=== PATIENT | male | born 1960 | race Caucasian/White ===

== ENCOUNTER 2017-04-09 10:29 | Emergency (ER) | payer MEDICARE, OTHER ==
[~2017-04-09] VITALS: Ht 185.4 cm; Wt 77.3 kg
[2017-04-09 10:44] VITALS: BP 93/62; PULSE 67; RESP 17; TEMP 98; O2SAT 98
[2017-04-09 11:16] VITALS: BP 100/72; PULSE 60; RESP 20; TEMP 97.8; O2SAT 98
[2017-04-09 11:19] VITALS: BP 100/72; PULSE 60; TEMP 97.8; O2SAT 98
[2017-04-09] MEDS ORDERED: ALBUAER3 INH (11:55)
[2017-04-09] MEDS ORDERED: GABA100C4 PO (11:55)
[2017-04-09] MEDS ORDERED: PREG25 PO (11:55)
[2017-04-09] MEDS ORDERED: BACL10TA PO (11:55)
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
--- NOTE | 2017-04-09 12:38 | RADRPT ---
EXAM DATE/TIME: 04/09/2017 12:03 [facility] COMPARISON: No previous studies available for comparison. INDICATIONS : Fell down the stairs today. MEDICAL HISTORY : None. SURGICAL HISTORY : None. ENCOUNTER: Initial ACUITY: 1 day PAIN SCORE: 6/10 LOCATION: Right anterior shoulder FINDINGS: Multiple view examination of the right shoulder demonstrates no evidence of fracture or dislocation. The glenohumeral and acromioclavicular joints are maintained. There is normal range of motion betwe en internal and external rotation. Bony mineralization is normal. CONCLUSION: No acute fracture. Fritz Martinez MD on April 09, 2017 at 12:36 Board Certified Radiologist. This report was verified electronically.
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
== END 2017-04-09 14:12 | disposition home or self-care (01) ==
LOC: PHED 10:29 → PHEFT 14:12
DX: S40.011A Contusion of right shoulder, initial encounter (principal); S16.1XXA Strain of muscle, fascia and tendon at neck level, initial encounter; W10.9XXA Fall (on) (from) unspecified stairs and steps, initial encounter; Y93.01 Activity, walking, marching and hiking; Y92.009 Unspecified place in unspecified non-institutional (private) residence as the place of occurrence of the external cause
CPT/HCPCS: 72125; 73030; 99284

== ENCOUNTER → 2017-04-19 | Outpatient (CLI) | payer MEDICARE ==
[~2017-04-19] MED LIST: ALBUAER3 INH; BACL10TA PO; GABA100C4 PO; PREG25 PO
[2017-04-19 13:10] LABS: BACTERIA, URINE RARE /hpf; BLOOD, URINE NEG (NEG); GLUCOSE,URINE NEG (NEG); HYALINE CAST, URINE 1 /lpf (RARE); KETONE, URINE NEG (NEG); MUCUS URINE FEW /lpf (OCC); NITRITE,URINE NEG (NEG); SQUAMOUS EPITHELIAL CELL URINE <1 /hpf (0-5); URINE COLOR YELLOW (YELLW/STRAW)
== END ==
LOC: PLAB 11:18
PROVIDERS: ATTEND Family Medicine
DX: R35.0 Frequency of micturition (principal); N39.41 Urge incontinence
CPT/HCPCS: 81001; 87086

== ENCOUNTER → 2017-09-26 | Day surgery (SDC) | payer OTHER ==
[~2017-09-26] VITALS: Ht 185.4 cm; Wt 75.2 kg
[~2017-09-26] MED LIST changes: +CEPH-459 PO; +CHLORHEXIDINE GLUCONATE 2 % 1 PACK (2 CLOTHS) TOPICAL PRN; +DEXAMETHASONE SOD PHOS 4 MG/ML VIAL IV ONE; +DO NOT ADM ANY ANTICOAGULANT DRUGS PRN; +ESMOLOL HCL 100 MG/10 ML VIAL IV ONE; +GLYCOPYRROLATE 1 MG/5 ML SYRINGE IV PUSH ONE; +INSULIN HUMAN REGULAR 1,000 UNITS/10 ML VIAL SQ PRN; +LACTATED RINGER'S 1000 ML IV PRN; +LIDOCAINE HCL 1% PF 5 ML SYRINGE OTHER ONE; +METOPROLOL TARTRATE 25 MG TAB PO PRN; +ONABOTULINUMTOXINA INJ 100 UNITS/VIAL SCH; +ONDANSETRON HCL 4 MG/2 ML VIAL IV ONE; +ONDANSETRON HCL 4 MG/2 ML VIAL IV PUSH PRN; +PERC5TAB12 PO; +PHENYLEPH/NS 1000 MCG/10 ML SYR IV ONE; +POVIDONE IODINE 5% (ANTISEPSIS KIT) 4 APPLICATIONS EACH NARE PRN; +PROPOFOL 200 MG/20 ML AMP IV ONE; +SODIUM CHLORID 0.9% 500 ML IV PRN; +SODIUM CHLORIDE 0.9% 20 ML VIAL ONE; +ceFAZolin 1,000 MG/NS 100 ML IV SCH; +ePHEDrine/NS 25 MG/5 ML SYRINGE IV ONE; +oxyCODONE/ACETAMINOPHEN 5 MG/325 MG TAB PO PRN
[2017-09-26 09:31] LABS: AUTOMATED NEUTROPHIL # 3.2 TH/MM3 (1.8-7.7); BASOPHIL # 0.1 TH/MM3 (0-0.2); BASOPHIL % 2.4 % (0.0-2.0); EOSINOPHIL # 0.2 TH/MM3 (0-0.4); EOSINOPHIL % 3.3 % (0.0-4.0); HEMOGLOBIN 13.9 GM/DL (13.0-17.0); LYMPH % 30.9 % (9.0-44.0); LYMPHOCYTE # 1.9 TH/MM3 (1.0-4.8); MEAN CELL VOLUME 82.8 FL (80.0-100.0); MEAN CORPUSCULAR HEMOGLOBIN 28.1 PG (27.0-34.0); MEAN CORPUSCULAR HGB CONC 33.9 % (32.0-36.0); MEAN PLATELET VOLUME 7.1 FL (7.0-11.0); MONO % 10.9 % (0.0-8.0); MONOCYTE # 0.7 TH/MM3 (0-0.9); NEUT % 52.5 % (16.0-70.0); PLATELET COUNT 431 TH/MM3 (150-450); RED BLOOD COUNT 4.96 MIL/MM3 (4.50-5.90); RED CELL DISTRIBUTION WIDTH 13.6 % (11.6-17.2)
[2017-09-26] MEDS: ONABOTULINUMTOXINA INJ 100 UNITS/VIAL SCH ×2 (11:29→11:36)
--- NOTE | 2017-09-26 12:42 | PD.OP ---
Operative Report Date of Surgery: Sep 26, 2017 Preoperative Diagnosis: (1) Neurogenic bladder Postoperative Diagnosis: (1) Neurogenic bladder Procedure: Cystoscopy and intravesical Botox injection therapy Anesthesia: General Surgeon: Sam Johnson Living Nurse(s): None Operation and Findings: Indication for procedures: Case of a pleasant 56-year-old gentleman with history neurogenic bladder dysfunction who presents today for cystoscopy and intravesical Botox injection therapy Operative procedures in detail: Patient was brought to the operating suite and placed supine on the OR table. Patient was then placed under general anesthesia. While being administered the anesthesia the patient became bradycardic and required aggressive medical intervention to normalize his heart rate. Once stabilized I proceeded with the information procedures. Anesthesia felt it was safe to proceed at this time. Cystoscopic evaluation was performed utilizing the rigid cystoscope with the 20 [place] sheath and 30 lens. The urethra was patent without stricture formation. The prostate was nonobstructing. Further passive cystoscope within the urinary bladder revealed right and left ureteral orifices to be in correct anatomic position effluxing clear yellow urine. The bladder itself was mild to moderately trabeculated. I then proceeded with injection of the Botox solution. 100 units of Botox was reconstituted and 10 cc of normal saline. I then proceeded with injecting approximately 1/2 cc at a time space 1 cm apart diffusely through the urinary bladder. A total of 200 units of Botox was administered. There was some oozing of blood at some of the injection sites and a decision was made to place a 16 [place] 10 cc Huffman catheter at conclusion of the procedure. The patient tolerated the procedures well and was transferred to the PACU in satisfactory condition. Sam Johnson MD Sep 26, 2017 12:42
[2017-09-26 13:45] VITALS: BP 111/79; PULSE 50; RESP 18; TEMP 98.6; O2SAT 94
--- NOTE | 2017-09-26 21:58 | EKG ---
Date Performed: 09/26/2017 Time Performed: 08:43:19 PTAGE: 56 years EKG: Sinus rhythm NORMAL ECG NO PREVIOUS TRACING DOCTOR: Mendel Nixon Interpretating Date/Time 09/26/2017 21:55:44
== END | disposition home or self-care (01) ==
LOC: HSDC 08:06
PROVIDERS: ATTEND Urology
DX: N31.9 Neuromuscular dysfunction of bladder, unspecified (principal); Z01.810 Encounter for preprocedural cardiovascular examination; R00.1 Bradycardia, unspecified
CPT/HCPCS: 00910; 52287; 85025; 93005; J0585; J0690; J1100; J2370; J2405; J3010; J7120